=== PATIENT | female | born 1970 | race Two or more races ===

== ENCOUNTER 2017-09-07 20:17 | Inpatient (IN) | payer OTHER ==
[~2017-09-07] VITALS: Ht 152.4 cm; Wt 65.8 kg
[2017-09-07] MEDS ORDERED: NKM (20:48)
[2017-09-07 20:54] VITALS: BP 136/90
[2017-09-07] MEDS: Norco 5mg/325mg tab ORAL ONE ×2 (21:15→21:27)
--- NOTE | 2017-09-07 21:16 | Emergency Room Report ---
History of Present Illness General Chief Complaint: Back Pain-No Injury Source: Patient Present Illness HPI Is a 47-year-old female with no significant past medical history. She presents with chief complaint of lower back pain for one day. Onset was around noon. Worse in the last hour or so. Pain localized to the lower lumbar/sacral area. Radiate around to the buttock area. No no fever chills but no nausea no vomiting. Pain is 9/10. Worse with movement. Allergies: Coded Allergies: No Known Allergies (Unverified , 09/07/17) Patient History Past Medical History: see triage record, old chart reviewed Past Surgical History: other Pertinent Family History: none Social History: Denies: smoking Last Menstrual Period: Aug Now: No Immunizations: other Reviewed Nursing Documentation: PMH: Agreed, PSxH: Agreed Nursing Documentation-PMH Hx Gastrointestinal Problems: Yes - GASTRITIS Review of Systems Eye: Denies: eye pain, blurred vision ENT: Denies: ear pain, nose congestion, throat swelling Respiratory: Denies: cough, shortness of breath Cardiovascular: Denies: chest pain, palpitations Gastrointestinal: Denies: abdominal pain, diarrhea, nausea, vomiting Musculoskeletal: Reports: back pain, Denies: joint pain Skin: Denies: rash Neurological: Denies: headache, numbness Endocrine: Denies: increased thirst, increased urine Hematologic/Lymphatic: Denies: easy bruising All Other Systems: negative except mentioned in HPI Physical Exam Vital Signs Date Time Temp Pulse Resp B/P (MAP) Pulse Ox O2 Delivery O2 Flow Rate FiO2 09/07/17 20:43 97.9 76 18 136/90 95 Room Air vitals normal Sp02 EP Interpretation: reviewed, normal General Appearance: well appearing, no apparent distress, alert Head: normocephalic, atraumatic Eyes: bilateral eye PERRL, bilateral eye EOMI ENT: hearing grossly normal, normal pharynx Neck: full range of motion, supple, no meningismus Respiratory: chest non-tender, lungs clear, normal breath sounds Cardiovascular #1: regular rate, rhythm, no murmur Gastrointestinal: normal bowel sounds, non tender, no mass, no organomegaly, no bruit, non-distended Musculoskeletal: gait/station normal, normal range of motion, tender - Over left lower lumbar/sacral paraspinous area. Psychiatric: mood/affect normal Skin: warm/dry Medical Decision Making Diagnostic Impression: Primary Impression: Back pain Qualified Codes: M54.5 - Low back pain Additional Impression: Necrosis of tissue at site of injection Qualified Codes: T80.89XA - Other complications following infusion, transfusion and therapeutic injection, initial encounter; I96 - Gangrene, not elsewhere classified ER Course This patient presents with lower back pain/sacral area pain. She had silicone injection in that site before. There is some hardness and tenderness in that area. She is concerning for possible necrosis. I spoke with her surgeon who recommended that patient be admitted to the hospital for further workup including MRI. He had arranged her to be admitted to Dr. Aguilar. I spoke with him and he agreed to admit the patient. Lab Results Impression labs unremarkable Last Vital Signs Date Time Temp Pulse Resp B/P (MAP) Pulse Ox O2 Delivery O2 Flow Rate FiO2 09/07/17 20:54 97.9 18 136/90 95 Room Air 09/07/17 20:43 76 Status: unchanged Disposition: ADMITTED INPATIENT Condition: Serious KULWINDER VIGIL M.D. Sep 07, 2017 21:16
[2017-09-07 21:52] LABS: APPEARANCE,URINE CLEAR; KETONES,URINE NEGATIVE (NEGATIVE); LEUKOCYTE ESTERASE ,URINE NEGATIVE (NEGATIVE); NITRITE,URINE NEGATIVE (NEGATIVE); PH,URINE 7 (4.5-8.0); PROTEIN,URINE NEGATIVE (NEGATIVE); UROBILINOGEN,URINE NORMAL MG/DL (0.0-1.0)
[2017-09-07 22:55] LABS: BASOPHILS % (AUTO) 1.5 % (0.0-2.0); EOSINOPHILS % (AUTO) 1.4 % (0.0-3.0); LYMPHOCYTES % (AUTO) 39.7 % (20.0-45.0); MEAN CORPUSCULAR HEMOGLOBIN 25.3 PG (27.0-31.0); MEAN CORPUSCULAR VOLUME 82 FL (80-99); MEAN PLATELET VOLUME 6.4 FL (6.5-10.1); MONOCYTES % (AUTO) 5.1 % (1.0-10.0); NEUTROPHILS % (AUTO) 52.3 % (45.0-75.0); PLATELET COUNT 412 K/UL (150-450); RED BLOOD COUNT 4.94 M/UL (4.20-5.40); RED CELL DISTRIBUTION WIDTH 21.1 % (11.6-14.8); WHITE BLOOD COUNT 6.4 K/UL (4.8-10.8)
[2017-09-07 23:02] LABS: ANION GAP 9 mmol/L (5-15); CALCIUM 9.4 MG/DL (8.5-10.1); CARBON DIOXIDE 28 MMOL/L (21-32); CHLORIDE 104 MMOL/L (98-107); CREATININE 0.6 MG/DL (0.55-1.30); GLOMERULAR FILTRATION RATE > 60 mL/min (>60); POTASSIUM 3.7 MMOL/L (3.5-5.1); SODIUM 141 MMOL/L (136-145)
[2017-09-07] MEDS ORDERED: Morphine Sulfate 4mg/ml Inj IVP PRN (23:15)
[2017-09-07] MEDS ORDERED: Morphine Sulfate 2mg/ml Inj IVP PRN (23:15)
[2017-09-07 23:58] VITALS: BP 125/79
[2017-09-08] VITALS (18 sets, daily range): BP systolic 87–136; BP diastolic 40–78
[2017-09-08] MEDS ORDERED: D5NS 1,000 ML IV SCH (00:11)
[2017-09-08] MEDS ORDERED: Unasyn 3gm Inj IM ONE (01:00)
[2017-09-08] MEDS ORDERED: Sterile Water 10ml Vial IV SCH (03:00)
[2017-09-08] MEDS ORDERED: Unasyn 3gm/NS 110ml IVPB SCH ×2 (06:00)
[2017-09-08] MEDS ORDERED: Unasyn 3gm Inj ONE (06:07)
--- NOTE | 2017-09-08 09:26 | Diagnostic Imaging Report ---
Indication: Pain and swelling and low back buttocks and bilateral thighs, history of prior silicone injections Technique: Sagittal T1 and T2 fast spin echo, sagittal STIR, axial T1 and T2 fast spin-echo images of the lumbar spine Comparison: None Findings: On the images of the lowest axial cuts, focal signal abnormalities are seen in the subcutaneous fat. These are better visualized and described on a pelvic MRI performed at same time. Bony alignment is normal. Vertebral body marrow signal is normal. Vertebral body heights are preserved. There is degenerative disc narrowing at L5-S1. The remainder the disc spaces are preserved. There is desiccation of the L4-5 and L5-S1 discs. At L5-S1, there is very mild circumferential annular bulge, which does not significantly compromise the spinal canal, may minimally compromise the neural foramina bilaterally. At L4-5, there is minimal circumferential annular bulge with evidence of a small annular fissure posteriorly. However, this does not significantly compromise the neural foramina or the spinal canal. Progress of the remaining disc levels, no significant disc bulge or protrusion, spinal stenosis, or neural foraminal stenosis. The included extraspinal soft tissues are unremarkable. Impression: Minimal degenerative changes, as described No significant acute abnormality Buttock subcutaneous fat abnormality, incompletely included on this exam. Please refer to pelvic MRI for discussion of this
--- NOTE | 2017-09-08 10:54 | History & Physical ---
History and Physical History & Physicial DATE OF ADMISSION: 09/07/2017 REASON FOR ADMISSION: pain over buttocks HISTORY OF PRESENT ILLNESS: This is a 47 year old female w h/o anemia, silicon injection of the gluteals bilaterally 5 years ago at home by nurse who was referred here by his plastic surgeon for lower back pain. She states she has sharp gluteal b/l pain radiating down thighs that is worse at night when laying flat. She states she cannot sleep because of the pain PAST MEDICAL HISTORY: gastritis, DDD of spine, anemia PAST SURGICAL HISTORY: Silicon injections over the gluteals 5 yrs ago tummy [place], umbilical hernia repair MEDICATIONS: No medications. ALLERGIES: No allergies. PAST SOCIAL HISTORY: she does not smoke. He drinks alcohol socially. He does not use any drugs. FAMILY HISTORY: Noncontributory. REVIEW OF SYSTEMS: A 12-point review of systems is negative except for pertinent positives as mentioned above. Last 24 Hour Vital Signs Date Time Temp Pulse Resp B/P (MAP) Pulse Ox O2 Delivery O2 Flow Rate FiO2 09/08/17 08:41 97.7 58 18 103/59 96 09/08/17 04:00 98.1 57 19 114/68 95 09/08/17 04:00 Room Air 09/08/17 00:30 98.2 64 18 114/67 98 09/08/17 00:25 97.9 69 18 125/79 100 Room Air 09/08/17 00:00 Room Air 09/07/17 23:58 97.9 69 18 125/79 100 Room Air 09/07/17 20:54 97.9 18 136/90 95 Room Air 09/07/17 20:43 97.9 76 18 136/90 95 Room Air PHYSICAL EXAMINATION: GENERAL: No acute distress. The patient is alert, awake, and oriented x3. HEENT: Normocephalic and atraumatic. NECK: Supple. No JVD. LUNGS: Clear to auscultation bilaterally. No crackles, rhonchi, or rales. CARDIOVASCULAR: Regular rate and rhythm. Normal S1 and S2. + faint murmur SKIN: The patient has redness and warmth over the gluteals and it is felt tender to touch. He has significant amount of fullness in both gluteals. EXTREMITIES: No clubbing, cyanosis, or edema. LABORATORY AND DIAGNOSTIC DATA: Laboratory Tests Test 09/07/17 21:30 09/07/17 22:36 09/08/17 05:20 Urine Color Pale yellow Urine Appearance Clear Urine pH 7 (4.5-8.0) Urine Specific Mcdonald 1.005 (1.005-1.035) Urine Protein Negative (NEGATIVE) Urine Glucose (UA) Negative (NEGATIVE) Urine Ketones Negative (NEGATIVE) Urine Occult Blood Negative (NEGATIVE) Urine Nitrite Negative (NEGATIVE) Urine Bilirubin Negative (NEGATIVE) Urine Urobilinogen Normal MG/DL (0.0-1.0) Urine Leukocyte Esterase Negative (NEGATIVE) White Blood Count 6.4 K/UL (4.8-10.8) Pending Red Blood Count 4.94 M/UL (4.20-5.40) Hemoglobin 12.5 G/DL (12.0-16.0) Hematocrit 40.4 % (37.0-47.0) Mean Corpuscular Volume 82 FL (80-99) Mean Corpuscular Hemoglobin 25.3 PG (27.0-31.0) L Mean Corpuscular Hemoglobin Concent 31.0 G/DL (32.0-36.0) L Red Cell Distribution Width 21.1 % (11.6-14.8) H Platelet Count 412 K/UL (150-450) Mean Platelet Volume 6.4 FL (6.5-10.1) L Neutrophils (%) (Auto) 52.3 % (45.0-75.0) Lymphocytes (%) (Auto) 39.7 % (20.0-45.0) Monocytes (%) (Auto) 5.1 % (1.0-10.0) Eosinophils (%) (Auto) 1.4 % (0.0-3.0) Basophils (%) (Auto) 1.5 % (0.0-2.0) Sodium Level 141 MMOL/L (136-145) Potassium Level 3.7 MMOL/L (3.5-5.1) Chloride Level 104 MMOL/L (98-107) Carbon Dioxide Level 28 MMOL/L (21-32) Anion Gap 9 mmol/L (5-15) Blood Urea Nitrogen 8 mg/dL (7-18) Creatinine 0.6 MG/DL (0.55-1.30) Estimat Glomerular Filtration Rate > 60 mL/min (>60) Glucose Level 97 MG/DL (74-106) Calcium Level 9.4 MG/DL (8.5-10.1) Lymphocytes Pending Erythrocyte Sedimentation Rate 8 MM/HR (0-20) Lupus Anticoagulant Pending Lupus Anticoagulant PTT Baseline Pending Lupus Anticoag DRVVT Screen Ratio Pending DRVVT Confirmation Interpretation Pending Hexagonal Phase Comment Pending C-Reactive Protein, Quantitative < 0.4 mg/dL (0.00-0.90) Human Chorionic Gonadotropin, Qual Negative Immunoglobulin G Pending Immunoglobulin A Pending Immunoglobulin M Pending Immunofixation Screen Pending Rheumatoid Factor Screen Pending Anti-Nuclear Antibody Screen Pending SS-A/Ro Antibody Pending SS-B/La Antibody Pending Total Complement (CH50) Pending Percent CD3 Cells Pending Absolute CD3 Count Pending Percent CD4 Cells Pending Absolute CD4 Count Pending T-Lymphocyte CD4/CD8 Ratio Pending Percent CD8 Cells Pending Absolute CD8 Count Pending ASSESSMENT: 1. Gluteal cellulitis with tissue necrosis secondary due to silicon injection. 2. gastritis 3. murmur PLAN: 1. Admit the patient to Medical/Surgical. 2. Followup MRI of Lumbar/Sacrum 3. autoimmune labs ordered 4. TTE ordered 5. Plastic surgery consult; NPO; Possible debridement by plastic surgery; can proceed for possible debridement without cardiovascular risk stratification 6. Unasyn 3gm IV Q 6hrs 7. PPI 8. IV fluids 9. Type and cross 2 units DVT px - SCDs CHERRI ARZATE M.D. Sep 08, 2017 10:54
--- NOTE | 2017-09-08 11:29 | Diagnostic Imaging Report ---
Indication: PAIN Technique: Coronal and axial T1 fast spin-echo, coronal FSE IR, axial FSE STIR, axial T2 FRFSE with and without fat saturation, sagittal T2 FRFSE Comparison: None Findings: Foci of low signal on all sequences are seen primarily concentrated within the bilateral buttock subcutaneous fat. However, similar foci, less extensive, are seen wrapping around into the bilateral hip regions, and extending distally well into the lateral thigh subcutaneous fat, extending beyond the imaging volume. The matrix of soft tissue surrounding base demonstrates a reticular pattern of slightly increased T2 signal on the STIR signal with cyst, but no evidence of significant soft tissue edema or focal fluid collections are demonstrated. No muscular signal abnormality demonstrated. Considerable fluid is seen the lung endometrium and endocervical canal. Filling defects are seen within the fluid, which may reflect polyps or submucosal fibroids. There are also myometrial foci of low signal in the uterus which may reflect fibroids, and a posterior focus of high T2 signal which may represent a degenerated fibroid. There is also evidence of a cervical nabothian cyst. Prominent bilateral inguinal lymph nodes are demonstrated. Impression: Foci bilateral buttock, hip, and thigh low signal within the subcutaneous fat, consistent with history of silicone injections. Note that this extends well into the bilateral lateral thighs, beyond the imaging volume There is slight increased STIR signal within the soft tissues surrounding the injected silicone, but no gabby edema to suggest cellulitis is evident. No focal fluid collections to suggest abscess. Considerable fluid is seen within the endometrium. Polypoid filling defects within the endometrial fluid may reflect some mucosal fibroids or polyps. There are also fundal fibroids demonstrated. Recommend gynecological evaluation and sonography, as clinically indicated
--- NOTE | 2017-09-08 12:28 | Pre-Procedure Note/Attestation ---
Pre-Procedure Note/Attestation Complete Prior to Procedure Planned Procedure: bilateral Procedure Narrative: staged debridement of bilateral buttock and back necrotic soft tissue and flap delay and wound vac placement Indications for Procedure Pre-Operative Diagnosis: bilateral buttock and back necrotic soft tissue Attestation I attest that I discussed the nature of the procedure; its benefits; risks and complications; and alternatives (and the risks and benefits of such alternatives ), prior to the procedure, with the patient (or the patient's legal school admissions representative). I attest that, if there was a reasonable possibility of needing a blood transfusion, the patient (or the patient's legal school admissions representative) was given the [facility] standardized written summary, pursuant to the Rigo [place] Blood Safety Act ([place] Health and Safety Code # 1645, as amended). I attest that I re-evaluated the patient just prior to the surgery and that there has been no change in the patient's H&P, except as documented below: Ernesto Alfredo M.D. Sep 08, 2017 12:28
[2017-09-08] MEDS ORDERED: Bacitracin 50000 Units Vial ONE (12:56)
--- NOTE | 2017-09-08 13:58 | Anethesia Preoperative Eval ---
Anesthesia Pre-op PMH/ROS General Date of Evaluation: Sep 08, 2017 Anesthesiologist: Brandon ASA Score: ASA 2 Mallampati Score Class I : Soft palate, uvula, fauces, pillars visible Class II: Soft palate, uvula, fauces visible Class III: Soft palate, base of uvula visible Class IV: Only hard plate visible Mallampati Classification: Class I Surgeon: Juni Diagnosis: Back Pain Surgical Procedure: Debride Bilateral Buttocks/Back with Wound Vac Placement Anesthesia History: none Family History: no anesthesia problems Allergies: Coded Allergies: No Known Allergies (Unverified , 09/07/17) Medications: see eMAR Past Medical History Gastrointestinal/Genitourinary: Reports: GERD Hematology/Immune: Reports: anemia Anesthesia Pre-op Phys. Exam Physician Exam Last Vital Signs Date Time Temp Pulse Resp B/P (MAP) Pulse Ox O2 Delivery O2 Flow Rate FiO2 09/08/17 12:00 97.9 71 19 115/78 99 09/08/17 04:00 Room Air Constitutional: NAD Neurologic: CN 2-12 intact Cardiovascular: RRR Respiratory: CTA Gastrointestinal: S/NT/ND Airway Exam Mallampati Score: Class I MO: full ROM: full Teeth: intact Anesthesia Pre-op A/P Labs Hematology Test 09/07/17 22:36 09/08/17 05:20 White Blood Count 6.4 K/UL (4.8-10.8) Pending Red Blood Count 4.94 M/UL (4.20-5.40) Hemoglobin 12.5 G/DL (12.0-16.0) Hematocrit 40.4 % (37.0-47.0) Mean Corpuscular Volume 82 FL (80-99) Mean Corpuscular Hemoglobin 25.3 PG (27.0-31.0) L Mean Corpuscular Hemoglobin Concent 31.0 G/DL (32.0-36.0) L Red Cell Distribution Width 21.1 % (11.6-14.8) H Platelet Count 412 K/UL (150-450) Mean Platelet Volume 6.4 FL (6.5-10.1) L Neutrophils (%) (Auto) 52.3 % (45.0-75.0) Lymphocytes (%) (Auto) 39.7 % (20.0-45.0) Monocytes (%) (Auto) 5.1 % (1.0-10.0) Eosinophils (%) (Auto) 1.4 % (0.0-3.0) Basophils (%) (Auto) 1.5 % (0.0-2.0) Lymphocytes Pending Erythrocyte Sedimentation Rate 8 MM/HR (0-20) Coagulation Test 09/08/17 05:20 Lupus Anticoagulant Pending Lupus Anticoagulant PTT Baseline Pending Lupus Anticoag DRVVT Screen Ratio Pending DRVVT Confirmation Interpretation Pending Hexagonal Phase Comment Pending Chemistry Test 09/07/17 22:36 09/08/17 05:20 Sodium Level 141 MMOL/L (136-145) Potassium Level 3.7 MMOL/L (3.5-5.1) Chloride Level 104 MMOL/L (98-107) Carbon Dioxide Level 28 MMOL/L (21-32) Anion Gap 9 mmol/L (5-15) Blood Urea Nitrogen 8 mg/dL (7-18) Creatinine 0.6 MG/DL (0.55-1.30) Estimat Glomerular Filtration Rate > 60 mL/min (>60) Glucose Level 97 MG/DL (74-106) Calcium Level 9.4 MG/DL (8.5-10.1) C-Reactive Protein, Quantitative < 0.4 mg/dL (0.00-0.90) Human Chorionic Gonadotropin, Qual Negative Serum Test Test 09/08/17 05:20 Human Chorionic Gonadotropin, Qual Negative Risk Assessment & Plan Assessment: ASA 2 Plan: GA, BIS, GlideScope Status Change Before Surgery: No Pre-Antibiotics Dru grams Ancef IV Given Within 1 Hr of Incision: Yes Time Given: 13:11 Hai Taylor MD Sep 08, 2017 13:58
--- NOTE | 2017-09-08 13:59 | Immediate Post-Op Evaluation ---
Immediate Post-Op Evalulation Immediate Post-Op Evalulation Procedure: Debride Bilateral Buttocks/Back with Wound Vac Placement Date of Evaluation: Sep 08, 2017 Time of Evaluation: 15:34 IV Fluids: 1000 LR Blood Products: 0 Estimated Blood Loss: 200 Urinary Output: 200 Blood Pressure Systolic: 87 Blood Pressure Diastolic: 44 Pulse Rate: 62 Respiratory Rate: 16 O2 Sat by Pulse Oximetry: 100 Temperature (Fahrenheit): 97 Pain Score (1-10): 2 Nausea: No Vomiting: No Complications 0 Patient Status: awake, reacts, patent, extubated, none Hydration Status: adequate Dru grams Ancef IV Given Within 1 Hr of Incision: Yes Time Given: 13:11 Hai Taylor MD Sep 08, 2017 13:59
[2017-09-08] MEDS ORDERED: LORazepam Inj 2mg/ml 1ml IV PRN (14:00)
[2017-09-08] MEDS ORDERED: Norco 7.5mg/325mg tab ORAL PRN (14:00)
[2017-09-08] MEDS ORDERED: Norco 5mg/325mg tab ORAL PRN (14:00)
[2017-09-08] MEDS ORDERED: DiphenhydrAMINE 50mg/ml Inj IVP PRN ×2 (14:00→16:00)
[2017-09-08] MEDS ORDERED: Metoclopramide 10mg/2ml Inj IVP PRN (14:00)
[2017-09-08] MEDS ORDERED: oxyCODONE HCL/Acetaminophen 5/325mg ORAL PRN (14:00)
[2017-09-08] MEDS ORDERED: Atropine Inj 1mg/10ml Syr IV PRN (14:00)
[2017-09-08] MEDS ORDERED: Ketorolac 60mg Inj IV PRN (14:00)
[2017-09-08] MEDS ORDERED: Midazolam 2mg/2ml Inj IVP PRN (14:00)
[2017-09-08] MEDS ORDERED: fentaNYL 100 mcg/2 mL IV PRN (14:00)
--- NOTE | 2017-09-08 14:01 | 48 Hour Post Anesthesia Eval ---
Post Anesthesia Evaluation Procedure: Debride Bilateral Buttocks/Back with Wound Vac Placement Date of Evaluation: Sep 08, 2017 Time of Evaluation: 15:43 Blood Pressure Systolic: 112 0: 71 Pulse Rate: 67 Respiratory Rate: 16 Temperature (Fahrenheit): 98.4 O2 Sat by Pulse Oximetry: 100 Airway: patent Nausea: No Vomiting: No Pain Intensity: 2 Hydration Status: adequate Cardiopulmonary Status: Stable Mental Status/LOC: patient returned to baseline Follow-up Care/Observations: 0 Post-Anesthesia Complications: 0 Follow-up care needed: N/A Hai Taylor MD Sep 08, 2017 14:01
[2017-09-08] MEDS ORDERED: Acetaminophen (Non formulary) 100 ML IV ONE (14:45)
--- NOTE | 2017-09-08 15:10 | Operative Note - PDOC ---
Operative Note Operative Note Pre-op Diagnosis: bilateral buttock and back necrotic soft tissue, cellultis Procedure: staged debridement of bilateral buttock and back soft tissue necrosis, flap delay and wound vac placement Post-op Diagnosis: bilateral buttock and back soft tissue necrosis, buttock cellulitis Post-op Diagnosis: same as pre-op Surgeon: rufus Glass Fitter: sammy Anesthesiologist: brissa Anesthesia: general Specimen: yes - bilateral buttock and back soft tissue necrosis Complications: none Condition: stable Estimated Blood Loss: volume - 350 Drains: wound vac Implant(s) used?: No Indications for Procedure necrotic soft tissue b/l buttock and back Description of Procedure see op note Ernesto Alfredo M.D. Sep 08, 2017 15:10
[2017-09-08] MEDS ORDERED: PCA HYDROmorphone 1mg/ml 30 ML IV ONE (15:52)
[2017-09-08] MEDS: PCA HYDROmorphone 1mg/ml 30 ML IV PRN (15:57)
[2017-09-08] MEDS: Hydromorphone 0.5mg/0.5ml inj IVP PRN ×2 (15:58→16:19)
[2017-09-08] MEDS ORDERED: Naloxone 0.4mg/ml Inj IVP PRN (16:00)
[2017-09-08] MEDS ORDERED: Rate Change PCA 1 Each MISC PRN (16:00)
[2017-09-08] MEDS ORDERED: LORazepam 1mg tab ORAL PRN (16:00)
[2017-09-08] MEDS ORDERED: LR 1000ml 1,000 ML IVLG SCH (16:30)
[2017-09-08] MEDS: PCA Education Pamphlet MISC SCH (17:18)
[2017-09-08] MEDS: LR 1000ml 1,000 ML IV SCH ×2 (18:00→20:16)
[2017-09-08] MEDS: PCA shift volume MISC SCH (19:28)
[2017-09-08] MEDS: Ampicillin/Sulbactam Sod 3 GM in NS 55 ML IVPB SCH (21:54)
[2017-09-08] MEDS ORDERED: Ampicillin/Sulbactam Sod 3 GM in NS 110 ML IVPB SCH (22:00)
[2017-09-08] MEDS: Heparin 5000 units/ml inj SUBQ SCH (22:17)
--- NOTE | 2017-09-08 23:30 | Operative Note - Dictated ---
DATE OF OPERATION: 09/08/2017 SURGEON: Ernesto Alfredo M.D. CRAWLER DRAGLINE OPERATOR SURGEON: Mary Griffin M.D. ANESTHESIOLOGIST: Hai Taylor M.D. ANESTHESIA: General endotracheal tube anesthesia. PREOPERATIVE DIAGNOSES: 1. Cellulitis of bilateral buttocks. 2. Bilateral buttock, back, and hip soft tissue necrosis secondary to foreign body reaction. POSTOPERATIVE DIAGNOSES: 1. Cellulitis of bilateral buttocks. 2. Bilateral buttock, back, and hip soft tissue necrosis secondary to foreign body reaction. PROCEDURE PERFORMED: 1. Staged debridement of foreign material from bilateral buttocks and back. 2. Elevation and delay of right gluteal inferiorly based fasciocutaneous flap. 3. Elevation and delay of left gluteal inferiorly based fasciocutaneous flap. 4. Elevation and delay of left superiorly based lumbar spine fasciocutaneous flap. 5. Radical resection of 90 sq cm of right back necrotic soft tissue mass. 6. Radical resection of 320 sq cm of right buttock necrotic soft tissue mass. 7. Radical resection of 90 sq cm of left back necrotic soft tissue mass. 8. Radical resection of 288 sq cm of left buttock necrotic soft tissue mass. 9. Debridement of bilateral gluteus claudia necrotic muscle. 10. Pulse jet lavage irrigation of bilateral buttocks open wound. 11. Wound VAC placement of bilateral buttocks. INDICATION FOR PROCEDURE: This is a 47-year-old female, who I previously dictated an emergency consultation earlier in the day as she was admitted through the emergency room last night complaining of redness and warmth, fevers and chills, as well as significant back and buttock pain. The patient had MRIs ordered by the emergency room. It showed significant soft tissue infiltration of bilateral buttocks and the entire soft tissue and subcutaneous tissue became necrotic and there was involvement of bilateral gluteus claudia muscles more severe on the right and the exam findings were consistent with cellulitis. There was also a cranial migration of the foreign material up to the L4 level of the lumbar spine, which is likely the inciting cause of the patient's exquisite back pain as well as the cause of the paresthesias of her lower extremities from pressure on the paraspinal muscles and the sciatic nerves, which caused the paresthesias, which the patient presented to the emergency room with. The patient was admitted for intravenous antibiotics and pain control. After reviewing the MRIs, I explained to the patient that she would need emergent surgery including radical debridement in a staged manner of soft tissue necrosis from bilateral buttocks and her back as well as her both lower extremities. I explained to the patient that it would be impossible to remove all the soft tissue necrosis and foreign material and some of it may have migrated and some of it may continue to migrate in the future down her limbs and further up her back. It was also communicated to the patient that there is a chance this could come out cosmetically disfiguring. She may need multiple surgeries over many years. It was also explained to the patient that she may not improve after surgery. Risks and benefits of the proposed operation were also discussed with the patient. It was explained to the patient that she would benefit from surgery to lower the foreign body burden by debriding and removing a significant amount of the foreign material to allow her immune system to reset. Blood work to rule out PEGGY syndrome was sent and is pending. It was explained to the patient that a large amount of foreign body material and burden once it is lowered, the immune system usually rebounds and then she will not be as prone to recurrent infections such as cellulitis for which she presented to the emergency room in the future. It was also explained that removing the foreign material would likely leave less in her to potentially migrate in the future and will also take the pressure off the paraspinal muscles of the back and the sciatic nerve and should help her exquisite back pain and the paresthesias, which she presented to the emergency room with. The patient was told if she did not have surgery, her skin which is already hyperpigmented and hard and discolored consisting of soft tissue necrosis would eventually progress to entire necrosis of the buttocks entailing much more radical surgeries and possibly even sepsis and at this point. The potential risks of the surgery were discussed including, but not limited to, bleeding, hematoma, seroma, infection, DVT, PE, [place], , poor wound healing, potential for cosmetic disfiguring, wound dehiscence, hypertrophic scarring, keloid scarring, damage to sensory and motor nerves, as well as the need for multiple surgeries. The patient understood this and wished to proceed. Appropriate preop workup was performed by the emergency room staff and that the patient was seen by the medical team and optimized. An echocardiogram was done, which was normal and the patient is going to be taken to the operating room emergently. DESCRIPTION OF PROCEDURE: The patient was taken to the operating room. After appropriate markings were made in the preop holding area consistent with the physical exam as well as MRI findings, she was then taken to the operating room. In the operating room, she was placed under general endotracheal tube anesthesia. SCDs were placed on bilateral lower extremities. Perioperative antibiotics were confirmed and given. The patient was then flipped in the prone position. After appropriate position and padding of her arms, the area was prepped and draped in the usual clean and sterile manner. The anus was blocked off with a blue towel and Ioban to block any bowel flow. We started the operation with a #10 scalpel. We cut through the skin and used electrocautery to dissect down to the deep muscle fascia of the paraspinal muscles and gluteus claudia muscles. We then elevated and delayed superiorly based lumbar spine fasciocutaneous flap just deep to Kamila's fascia going up to level L4 correlating to the MRI findings and the physical exam findings of fluctuant mass and tenderness. When we got there, we incised the deep muscle fascia to release the muscle flaps. We then elevated and delayed bilateral gluteal left and right inferiorly based gluteal fasciocutaneous flaps going down to approximately 20 cm just deep to Kamila's fascia with electrocautery and with the aid of a lighted retractor. We maintained axial blood flow to these fasciocutaneous flaps and we cut the deep fascia with electrocautery when we delayed them. Since it is going to be a significant amount of debulking of the soft tissue, our goal was to delay these flaps, and when she comes back to the operating room in a few days, we will debride whatever skin was nonviable and necrotic since there was a huge amount of debulking that was going to go on and the patient would have compromised blood supply due to the perforators, which were compromised. We then with a combination of sharp dissection and electrocautery performed a radical excision of the necrotic soft tissue of the right back. We removed 90 sq cm of the right buttock and hip. We removed 320 sq cm of the left back. We removed 90 cm in the left buttock and hip. We removed 288 sq cm in the necrotic soft tissue with a combination of electrocautery, sharp dissection, and scalpel. After doing this, there was also involvement of bilateral gluteus claudia muscles more on the right than the left, which is fibrotic or necrotic. These were debrided in a similar manner. After doing this and delaying the flaps, a pulse jet lavage irrigated with 2 liters of antibiotic irrigation. Hemostasis was achieved with #0 Vicryl sutures as well as electrocautery. At this time, we did a significant amount of debulking and there was concern for necrosis of the flaps especially on the left side. So, after delaying the flaps and assuring hemostasis, we placed wound VAC and we set it to 125 mmHg and we completed the operation. There was no leak in the wound VAC. The patient was flipped over into supine position and extubated. FINDINGS: As above. DRAINS: Wound VAC to the bilateral buttocks. ESTIMATED BLOOD LOSS: 350 mL. COMPLICATIONS: None. CONDITION: Stable. SPECIMENS: 1. Right back necrotic soft tissue mass. 2. Left back necrotic soft tissue mass. 3. Right buttock necrotic soft tissue mass. 4. Left buttock necrotic soft tissue mass. Ernesto Alfredo M.D. DR: CHANTALE JOB#: [id number] CC: JULIA
--- NOTE | 2017-09-08 23:45 | Consultation ---
DATE OF CONSULTATION: 09/08/2017 EMERGENCY CONSULTATION SURGEON: Ernesto Alfredo M.D. HISTORY OF PRESENT ILLNESS: This is a 47-year-old female, who presented to the emergency room late last night with complaints of redness and warmth, fevers and chills of bilateral buttocks as well as significant back pain as well as other systemic symptoms. The patient has a history of buttock injections five years ago. The patient has had intermittent problems over the past several months, but it worsened to the point today that she presented to the emergency room complaining of incapacitating buttock and back pain, burning and itching, paresthesias of both legs. On further history, the patient complains of anxiety, headaches, chronic fatigue, paresthesias of upper and lower extremities, pain radiating down her legs, and burning and itching of the buttocks with significant buttock and lower back pain. The patient also states she has new onset redness and warmth of bilateral buttocks, which is causing significant pain. She was evaluated by the emergency room staff and found to have physical exam findings consistent with cellulitis. MRI done by the emergency room staff of the lumbar spine and pelvis showed significant soft tissue infiltration of bilateral buttocks and foreign body granulomas consistent with soft tissue necrosis and cellulitis. In terms of the lumbar spine, there was migration of foreign material and soft tissue necrosis of the lumbar spine to the level of L4, which is likely the etiology of her incapacitating back pain as well as the cause of her acute infection. PAST MEDICAL HISTORY: Gastritis, degenerative joint disease of the spine as well as anemia. PAST SURGICAL HISTORY: Abdominoplasty as well as umbilical hernia repair with recurrent hernia. MEDICATIONS: The patient does not take any medications. ALLERGIES: She has no allergies. PHYSICAL EXAMINATION: The patient had bilateral buttocks that were erythematous and warm with significant discoloration and deformity and soft tissue hardening consistent with soft tissue necrosis of her buttocks and cellulitis. There was also a tender fluctuant mass in the lumbar spine and there was significant hyperpigmentation of the buttocks skin as well as soft tissue necrosis and it was red and warm to palpation and tender. I reviewed the MRIs with the patient and the medical team, and I explained to the patient that she needs to have IV antibiotics for her cellulitis and she was admitted also for pain control. I told the patient that she would benefit from emergent stage radical debridement of bilateral buttocks, hip, and back soft tissue necrosis in a staged manner, the first operation being today after appropriate clearance. The patient also has a history of a heart murmur and had an echocardiogram, which was within normal limits. On physical exam and history, the patient also has migration of foreign material and pain on bilateral lower extremities just above the knee about 12 x 4 cm on each side that are tender, the mass, with underlying soft tissue necrosis. I offered the patient to go to the operating room emergently for debridement, flap delay as well as wound VAC placement in a staged manner. The patient was then to be optimized by the medical team for this emergent operation. Ernesto Alfredo M.D. DR: Yina JOB#: [id number] CC: JULIA
[2017-09-09 04:00] VITALS: BP 95/57
[2017-09-09] MEDS: Ampicillin/Sulbactam Sod 3 GM in NS 55 ML IVPB SCH ×3 (05:22→22:31)
[2017-09-09] MEDS: Heparin 5000 units/ml inj SUBQ SCH ×3 (05:24→22:32)
[2017-09-09] MEDS: PCA shift volume MISC SCH ×2 (07:00→19:00)
[2017-09-09 08:00] VITALS: BP_SYST 137; BP_SYST 97; BP_DIAS 49; BP_DIAS 89
[2017-09-09 08:11] LABS: BASOPHILS % (AUTO) 0.5 % (0.0-2.0); EOSINOPHILS % (AUTO) 0.1 % (0.0-3.0); LYMPHOCYTES % (AUTO) 22.7 % (20.0-45.0); MEAN CORPUSCULAR HEMOGLOBIN 25.7 PG (27.0-31.0); MEAN CORPUSCULAR HGB CONC 31.2 G/DL (32.0-36.0); MEAN CORPUSCULAR VOLUME 82 FL (80-99); MEAN PLATELET VOLUME 6.5 FL (6.5-10.1); MONOCYTES % (AUTO) 6.7 % (1.0-10.0); NEUTROPHILS % (AUTO) 70.1 % (45.0-75.0); PLATELET COUNT 344 K/UL (150-450); RED BLOOD COUNT 3.68 M/UL (4.20-5.40); RED CELL DISTRIBUTION WIDTH 21.1 % (11.6-14.8); WHITE BLOOD COUNT 8.2 K/UL (4.8-10.8)
[2017-09-09 08:31] LABS: ANION GAP 8 mmol/L (5-15); CALCIUM 8.8 MG/DL (8.5-10.1); CARBON DIOXIDE 28 MMOL/L (21-32); CHLORIDE 103 MMOL/L (98-107); CREATININE 0.5 MG/DL (0.55-1.30); GLOMERULAR FILTRATION RATE > 60 mL/min (>60); POTASSIUM 4.2 MMOL/L (3.5-5.1); SODIUM 138 MMOL/L (136-145)
[2017-09-09] MEDS: Pantoprazole Inj IVP SCH (08:31)
[2017-09-09] MEDS ORDERED: Zolpidem 5mg tab ORAL PRN ×2 (09:00→17:45)
[2017-09-09] MEDS: LR 1000ml 1,000 ML IV SCH (10:19)
--- NOTE | 2017-09-09 11:29 | General Progress Note ---
Assessment/Plan Problem List: (1) Cellulitis and abscess of buttock ICD Codes: L02.31 - Cutaneous abscess of buttock; L03.317 - Cellulitis of buttock SNOMED: 952665725 (2) Back pain ICD Codes: M54.9 - Dorsalgia, unspecified SNOMED: 484807497 Qualifiers: Qualified Codes: M54.5 - Low back pain (3) Necrosis of tissue at site of injection ICD Codes: T80.89XA - Other complications following infusion, transfusion and therapeutic injection, initial encounter; I96 - Gangrene, not elsewhere classified SNOMED: [id number] Qualifiers: Qualified Codes: T80.89XA - Other complications following infusion, transfusion and therapeutic injection, initial encounter; I96 - Gangrene, not elsewhere classified Assessment/Plan abxs wound care follow labs PRN Ativan for insomnia Subjective Allergies: Coded Allergies: No Known Allergies (Unverified , 09/07/17) Subjective C/O insomnia Objective Last 24 Hour Vital Signs Date Time Temp Pulse Resp B/P (MAP) Pulse Ox O2 Delivery O2 Flow Rate FiO2 09/09/17 08:00 17 09/09/17 08:00 96.4 59 17 97/49 99 09/09/17 04:00 16 09/09/17 04:00 97.9 63 18 95/57 100 Room Air 09/09/17 04:00 Room Air 09/09/17 00:00 17 09/08/17 23:55 Nasal Cannula 2.0 09/08/17 23:55 98.2 79 18 99/62 100 Nasal Cannula 2.0 09/08/17 20:00 16 09/08/17 20:00 97.7 75 18 99/61 100 Nasal Cannula 2.0 09/08/17 20:00 Nasal Cannula 2.0 09/08/17 18:00 97.9 75 18 106/69 100 09/08/17 17:40 15 09/08/17 17:30 97.9 73 18 108/61 100 09/08/17 17:30 100 Nasal Cannula 3.0 09/08/17 17:15 99 Nasal Cannula 3.0 09/08/17 17:15 97.7 73 18 106/61 99 09/08/17 17:10 15 09/08/17 17:00 97.8 65 18 102/62 100 09/08/17 17:00 100 Nasal Cannula 3.0 09/08/17 16:40 15 09/08/17 16:40 98.3 09/08/17 16:35 98.3 63 15 136/65 100 Nasal Cannula 3.0 09/08/17 16:27 98.3 09/08/17 16:25 13 09/08/17 16:20 61 18 127/67 100 Nasal Cannula 3.0 09/08/17 16:10 13 09/08/17 16:10 54 11 130/52 100 Nasal Cannula 3.0 09/08/17 15:57 17 09/08/17 15:57 57 17 117/53 100 Nasal Cannula 3.0 09/08/17 15:40 60 18 107/46 100 Nasal Cannula 3.0 09/08/17 15:33 66 18 110/48 100 Simple Mask 8.0 09/08/17 15:28 63 17 87/40 100 Simple Mask 8.0 09/08/17 15:25 67 16 100 09/08/17 15:24 62 16 100 09/08/17 15:23 97.0 64 11 87/42 99 Simple Mask 8.0 09/08/17 12:00 97.9 71 19 115/78 99 Intake and Output 09/09/17 09/10/17 19:00 07:00 Intake Total 250 ml Balance 250 ml Intake Oral 250 ml Laboratory Tests 09/09/17 05:30: White Blood Count 8.2, Red Blood Count 3.68L, Hemoglobin 9.5L, Hematocrit 30.3L , Mean Corpuscular Volume 82, Mean Corpuscular Hemoglobin 25.7L, Mean Corpuscular Hemoglobin Concent 31.2L, Red Cell Distribution Width 21.1H, Platelet Count 344, Mean Platelet Volume 6.5, Neutrophils (%) (Auto) 70.1, Lymphocytes (%) (Auto) 22.7, Monocytes (%) (Auto) 6.7, Eosinophils (%) (Auto) 0.1, Basophils (%) (Auto) 0.5, Sodium Level 138, Potassium Level 4.2, Chloride Level 103, Carbon Dioxide Level 28, Anion Gap 8, Blood Urea Nitrogen 5L, Creatinine 0.5L, Estimat Glomerular Filtration Rate > 60, Glucose Level 89, Calcium Level 8.8 Height (Feet): 5 Height (Inches): 0.00 Weight (Pounds): 145 Cardiovascular: normal rate Respiratory/Chest: lungs clear Edema: no edema noted Generalized MATT SNEED Sep 09, 2017 11:29
[2017-09-09] MEDS ORDERED: LORazepam 1mg tab ORAL PRN (11:30)
[2017-09-09 12:00] VITALS: BP 142/83
--- NOTE | 2017-09-09 12:23 | General Progress Note ---
Progress Note Progress Note pt doing very well; reports resolution of pre-op local and systemic symptoms such asb/; LE paresthesias, back and buttock pain and burning and itching, and fatigue PE: flaps viable; some ecchymosis of bilateral buttocks skin (-) signs infection/collections wound vacs in place A/P 1. d/c waterman, decrease IVF 2. oob, dvt ppx, cont iv abx, cont VACs 3. to OR mon for further debridement and flap closure over drains as well as removal of FB from b/l LE 4. d/c [employer], switch to tramadol 5. minimal time on buttocks; pt to sleep on sides or stomach only Ernesto Alfredo M.D. Sep 09, 2017 12:23
[2017-09-09] MEDS: Docusate 100mg cap ORAL SCH ×2 (13:14→17:19)
[2017-09-09] MEDS: PCA HYDROmorphone 1mg/ml 30 ML IV PRN (15:33)
[2017-09-09 16:00] VITALS: BP 96/59
[2017-09-09] MEDS: PCA Education Pamphlet MISC SCH (17:05)
[2017-09-09] MEDS ORDERED: LR 1000ml 1,000 ML IV SCH (18:00)
--- NOTE | 2017-09-09 18:17 | Cardiology Report ---
APPROVED REPORT EXAM: Two-dimensional and M-mode echocardiogram with Doppler and color Doppler. INDICATION Heart Murmur M-Mode DIMENSIONS IVSd0.9 (0.7-1.1cm)Left Atrium (MM)2.6 (1.6-4.0cm) LVDd4.7 (3.5-5.6cm)Aortic Root2.8 (2.0-3.7cm) PWd1.0 (0.7-1.1cm)Aortic Cusp Exc.1.6 (1.5-2.0cm) IVSs1.4 cm LVDs2.6 (2.5-4.0cm) PWs1.3 cm Normal left ventricular chamber size, systolic function and wall motion. Left ventricular ejection fraction estimated to be 60 %. No left ventricular hypertrophy. No evidence of pericardial effusion. All other cardiac chamber sizes are within normal limits. Mild focal aortic valve sclerosis with adequate cusp excursion. Mildly thickened mitral valve leaflets with normal excursion. Mild Mitral annulus and aortic root calcification. Normal pulmonic valve structure. IVC at normal size with physiologic collapse. A color flow and spectral Doppler study was performed and revealed: No aortic regurgitation.. Trace mitral regurgitation. Mitral diastolic velocities indicate normal diastolic function . Mild tricuspid regurgitation. Tricuspid systolic velocities suggests peak right ventricular systolic pressure of 40 mmHg, consistent with mild pulmonary hypertension. No Pulmonic regurgitation present.
[2017-09-09 20:16] VITALS: BP 94/63
[2017-09-10 00:23] VITALS: BP 100/59
[2017-09-10] MEDS: Ampicillin/Sulbactam Sod 3 GM in NS 55 ML IVPB SCH ×3 (05:48→21:29)
[2017-09-10] MEDS: Heparin 5000 units/ml inj SUBQ SCH ×3 (06:43→21:25)
[2017-09-10] MEDS: PCA shift volume MISC SCH (07:00)
[2017-09-10 07:49] LABS: ANION GAP 6 mmol/L (5-15); CALCIUM 8.2 MG/DL (8.5-10.1); CARBON DIOXIDE 28 MMOL/L (21-32); CHLORIDE 104 MMOL/L (98-107); CREATININE 0.5 MG/DL (0.55-1.30); GLOMERULAR FILTRATION RATE > 60 mL/min (>60); POTASSIUM 3.5 MMOL/L (3.5-5.1); SODIUM 138 MMOL/L (136-145)
[2017-09-10 08:00] VITALS: BP_SYST 103; BP_SYST 108; BP_DIAS 61; BP_DIAS 69
[2017-09-10 08:32] LABS: BASOPHILS % (AUTO) 0.7 % (0.0-2.0); EOSINOPHILS % (AUTO) 0.9 % (0.0-3.0); MEAN CORPUSCULAR HEMOGLOBIN 26.3 PG (27.0-31.0); MEAN CORPUSCULAR VOLUME 82 FL (80-99); MEAN PLATELET VOLUME 6.3 FL (6.5-10.1); MONOCYTES % (AUTO) 6.6 % (1.0-10.0); NEUTROPHILS % (AUTO) 62.8 % (45.0-75.0); PLATELET COUNT 314 K/UL (150-450); RED CELL DISTRIBUTION WIDTH 21.2 % (11.6-14.8); WHITE BLOOD COUNT 6.8 K/UL (4.8-10.8)
[2017-09-10] MEDS: Pantoprazole Inj IVP SCH (08:37)
[2017-09-10] MEDS: Docusate 100mg cap ORAL SCH ×3 (08:38→17:40)
--- NOTE | 2017-09-10 09:39 | Pre-Procedure Note/Attestation ---
Pre-Procedure Note/Attestation Complete Prior to Procedure Planned Procedure: bilateral Procedure Narrative: staged debridement of b/l buttock/hip and leg necrotic soft tissue Indications for Procedure Pre-Operative Diagnosis: bilateral buttock and back necrotic soft tissue, cellultis Attestation I attest that I discussed the nature of the procedure; its benefits; risks and complications; and alternatives (and the risks and benefits of such alternatives ), prior to the procedure, with the patient (or the patient's legal leather goods sales representative). I attest that, if there was a reasonable possibility of needing a blood transfusion, the patient (or the patient's legal leather goods sales representative) was given the [facility] standardized written summary, pursuant to the [place] Blood Safety Act ([place] Health and Safety Code # 1645, as amended). I attest that I re-evaluated the patient just prior to the surgery and that there has been no change in the patient's H&P, except as documented below: Ernesto Alfredo M.D. Sep 10, 2017 09:39
--- NOTE | 2017-09-10 09:39 | General Progress Note ---
Progress Note Progress Note pt doing well (+) OOB AF/VSS PE: flaps viable (-) signs infection/collections erythema improved, VACs in place H/H appropriate 07/06 A/P 1. NPO, IVF after midnight 2. to OR for further debridement b/l buttocks/hips and legs tmw and flap closure over drains 3. cont OOB/DVT ppx/ abx/ VAC 4. post-op care d/w pt and all questions answered Ernesto Alfredo M.D. Sep 10, 2017 09:39
[2017-09-10] MEDS ORDERED: LR 1000ml 1,000 ML IV SCH ×2 (10:15→11:00)
[2017-09-10 12:00] VITALS: BP 108/69
--- NOTE | 2017-09-10 13:56 | General Progress Note ---
Assessment/Plan Problem List: (1) Cellulitis and abscess of buttock ICD Codes: L02.31 - Cutaneous abscess of buttock; L03.317 - Cellulitis of buttock SNOMED: [id number] (2) Back pain ICD Codes: M54.9 - Dorsalgia, unspecified SNOMED: [id number] Qualifiers: Qualified Codes: M54.5 - Low back pain (3) Necrosis of tissue at site of injection ICD Codes: T80.89XA - Other complications following infusion, transfusion and therapeutic injection, initial encounter; I96 - Gangrene, not elsewhere classified SNOMED: [id number] Qualifiers: Qualified Codes: T80.89XA - Other complications following infusion, transfusion and therapeutic injection, initial encounter; I96 - Gangrene, not elsewhere classified Assessment/Plan abxs wound care check iron panel PRN Ativan for insomnia Subjective Allergies: Coded Allergies: No Known Allergies (Unverified , 09/07/17) Subjective resting Objective Last 24 Hour Vital Signs Date Time Temp Pulse Resp B/P (MAP) Pulse Ox O2 Delivery O2 Flow Rate FiO2 09/10/17 12:00 18 09/10/17 08:00 16 09/10/17 08:00 97.7 79 20 103/61 97 Room Air 09/10/17 04:00 16 09/10/17 00:23 98.1 65 19 100/59 95 09/10/17 00:00 16 09/09/17 20:16 98.3 63 18 94/63 100 09/09/17 20:00 17 09/09/17 16:00 98.4 88 17 96/59 97 09/09/17 15:44 17 09/09/17 15:42 17 Intake and Output 09/10/17 09/11/17 19:00 07:00 Intake Total 240 ml Balance 240 ml Intake Oral 240 ml # Voids 1 Laboratory Tests 09/10/17 04:55: White Blood Count 6.8, Red Blood Count 3.40L, Hemoglobin 9.0L, Hematocrit 28.0L , Mean Corpuscular Volume 82, Mean Corpuscular Hemoglobin 26.3L, Mean Corpuscular Hemoglobin Concent 32.0, Red Cell Distribution Width 21.2H, Platelet Count 314, Mean Platelet Volume 6.3L, Neutrophils (%) (Auto) 62.8, Lymphocytes (%) (Auto) 29.0, Monocytes (%) (Auto) 6.6, Eosinophils (%) (Auto) 0.9, Basophils (%) (Auto) 0.7, Sodium Level 138, Potassium Level 3.5, Chloride Level 104, Carbon Dioxide Level 28, Anion Gap 6, Blood Urea Nitrogen 6L, Creatinine 0.5L, Estimat Glomerular Filtration Rate > 60, Glucose Level 91, Calcium Level 8.2L Height (Feet): 5 Height (Inches): 0.00 Weight (Pounds): 145 MATT SNEED Sep 10, 2017 13:56
[2017-09-10] MEDS: PCA HYDROmorphone 1mg/ml 30 ML IV PRN (15:40)
[2017-09-10 16:00] VITALS: BP 98/54
[2017-09-10] MEDS ORDERED: PCA Education Pamphlet MISC ONE (19:15)
[2017-09-10] MEDS ORDERED: Naloxone 0.4mg/ml Inj IVP PRN (19:15)
[2017-09-10] MEDS ORDERED: PCA HYDROmorphone 1mg/ml 30 ML IV PRN (19:15)
[2017-09-10] MEDS ORDERED: Rate Change PCA 1 Each MISC PRN (19:15)
[2017-09-10] MEDS ORDERED: DiphenhydrAMINE 50mg/ml Inj IVP PRN (19:15)
[2017-09-10 20:27] VITALS: BP 114/58
[2017-09-11] VITALS (12 sets, daily range): BP systolic 97–120; BP diastolic 51–69
[2017-09-11] MEDS ORDERED: LR 1000ml 1,000 ML IV SCH
[2017-09-11] MEDS: Ampicillin/Sulbactam Sod 3 GM in NS 55 ML IVPB SCH ×3 (05:19→21:14)
[2017-09-11] MEDS: Heparin 5000 units/ml inj SUBQ SCH ×3 (05:55→21:28)
[2017-09-11] MEDS ORDERED: PCA shift volume MISC SCH (07:00)
[2017-09-11] MEDS ORDERED: Bacitracin 50000 Units Vial ONE (07:13)
[2017-09-11] MEDS ORDERED: Sterile Water Irrig 1000ml IRRIG ONE (08:00)
[2017-09-11] MEDS ORDERED: NS Irrig 1000ml ONE (08:00)
[2017-09-11] MEDS ORDERED: Neostigmine 1mg/ml 10ml Inj ONE (08:00)
[2017-09-11] MEDS ORDERED: Lidocaine 1% MPF 10mg/ml 5ml ONE (08:00)
[2017-09-11] MEDS ORDERED: NS Irrig 2000ml IRRIG ONE (08:00)
[2017-09-11] MEDS ORDERED: fentaNYL 100 mcg/2 mL IV ONE (08:00)
[2017-09-11] MEDS ORDERED: LR 1000ml ONE (08:00)
[2017-09-11] MEDS ORDERED: Lidocaine 1% Plain 30 ml INJ ONE (08:00)
[2017-09-11] MEDS ORDERED: Dexamethasone 4mg/ml vial ONE (08:00)
[2017-09-11] MEDS ORDERED: Zemuron 50mg/5ml Inj IV ONE (08:00)
[2017-09-11] MEDS ORDERED: Glycopyrrolate 0.2mg/ml 1ml Vial ONE (08:00)
[2017-09-11] MEDS ORDERED: Propofol 1,000mg/ 100ml btl IV ONE (08:00)
[2017-09-11] MEDS ORDERED: Sodium Chloride 10ml vial INJ ONE (08:00)
[2017-09-11] MEDS ORDERED: Naloxone 0.4mg/ml Inj IVP PRN (08:30)
[2017-09-11] MEDS ORDERED: DiphenhydrAMINE 50mg/ml Inj IVP PRN ×2 (08:30→09:15)
[2017-09-11] MEDS ORDERED: LORazepam 1mg tab ORAL PRN (08:30)
[2017-09-11] MEDS ORDERED: Rate Change PCA 1 Each MISC PRN (08:30)
--- NOTE | 2017-09-11 08:58 | Immediate Post-Op Evaluation ---
Immediate Post-Op Evalulation Immediate Post-Op Evalulation Procedure: Closure Bilateral Buttocks/Back with Debridement, Closure, Bilateral Legs Date of Evaluation: Sep 11, 2017 Time of Evaluation: 11:39 IV Fluids: 1000 LR Blood Products: 0 Estimated Blood Loss: 20 Urinary Output: 0 Blood Pressure Systolic: 114 Blood Pressure Diastolic: 56 Pulse Rate: 69 Respiratory Rate: 16 O2 Sat by Pulse Oximetry: 100 Temperature (Fahrenheit): 98.1 Pain Score (1-10): 2 Nausea: No Vomiting: No Complications 0 Patient Status: awake, reacts, patent, extubated, none Hydration Status: adequate Dru Gram Ancef IV Given Within 1 Hr of Incision: Yes Time Given: 08:16 Hai Taylor MD Sep 11, 2017 08:58
[2017-09-11] MEDS ORDERED: PCA Education Pamphlet MISC ONE (09:00)
[2017-09-11] MEDS: Docusate 100mg cap ORAL SCH ×3 (09:00→17:48)
[2017-09-11] MEDS: Pantoprazole Inj IVP SCH (09:00)
[2017-09-11 09:02] LABS: CD3 ABSOLUTE 1502 /uL (622-2402); CD4 ABSOLUTE 1061 /uL (359-1519); CD8 ABSOLUTE 420 /uL (109-897); LYMPHOCYTES ABSOLUTE 2.1 x10E3/uL (0.7-3.1); LYMPHS 46 % (Not Estab.); RHEUMATOID FACTOR SCREEN <10.0 IU/mL (0.0-13.9); SS-B/La SJOGRENS ANTIBODY <0.2 AI (0.0-0.9); SSA/Ro SJOGRENS ANTIBODY <0.2 AI (0.0-0.9); WBC 4.5 x10E3/uL (3.4-10.8)
[2017-09-11] MEDS ORDERED: LR 1000ml 1,000 ML IVLG SCH (09:03)
[2017-09-11] MEDS ORDERED: Norco 5mg/325mg tab ORAL PRN (09:15)
[2017-09-11] MEDS ORDERED: Ketorolac 30mg Inj IV PRN ×2 (09:15)
[2017-09-11] MEDS ORDERED: Atropine Inj 1mg/10ml Syr IV PRN (09:15)
[2017-09-11] MEDS ORDERED: Midazolam 2mg/2ml Inj IVP PRN (09:15)
[2017-09-11] MEDS ORDERED: fentaNYL 100 mcg/2 mL IV PRN (09:15)
[2017-09-11] MEDS ORDERED: Norco 7.5mg/325mg tab ORAL PRN (09:15)
[2017-09-11] MEDS ORDERED: LORazepam Inj 2mg/ml 1ml IV PRN (09:15)
[2017-09-11] MEDS ORDERED: Metoclopramide 10mg/2ml Inj IVP PRN (09:15)
[2017-09-11] MEDS ORDERED: Hydromorphone 0.5mg/0.5ml inj IVP PRN (09:15)
[2017-09-11] MEDS ORDERED: oxyCODONE HCL/Acetaminophen 5/325mg ORAL PRN (09:15)
[2017-09-11] MEDS: LR 1000ml 1,000 ML IV SCH ×2 (09:30→17:49)
[2017-09-11] MEDS ORDERED: Acetaminophen (Non formulary) 100 ML IV ONE (09:30)
--- NOTE | 2017-09-11 11:15 | Operative Note - PDOC ---
Operative Note Operative Note Pre-op Diagnosis: bilateral buttock and back and leg necrotic soft tissue, cellultis Procedure: staged debridement of bilateral buttock and back and legs soft tissue necrosis, flap delay and wound vac placement Post-op Diagnosis: bilateral buttock and back and legs soft tissue necrosis, buttock cellulitis Post-op Diagnosis: same as pre-op Surgeon: rufus Dermatopathologist: sammy Anesthesiologist: brissa Anesthesia: general Specimen: yes - bilateral buttock and back soft tissue necrosis Complications: none Condition: stable Estimated Blood Loss: volume - 150 Drains: LIBERTY Implant(s) used?: No Indications for Procedure necrotic soft tissue Description of Procedure see op note Ernesto Alfredo M.D. Sep 11, 2017 11:15
[2017-09-11] MEDS: PCA HYDROmorphone 1mg/ml 30 ML IV PRN (12:03)
[2017-09-11] MEDS: PCA shift volume MISC SCH (19:06)
--- NOTE | 2017-09-11 19:30 | Internal Med Progress Note ---
Subjective Physician Name Eros Arzate Attending Physician Eros Arzate M.D. Current Medications Medications (Trade) Dose Ordered Sig/Laura Route PRN Reason Start Time Stop Time Status Last Admin Dose Admin Acetaminophen (Tylenol) 650 mg Q4H PRN ORAL Mild Pain (Pain Scale 1-3) 09/07/17 23:15 10/07/17 23:14 Ampicillin Sodium/ Sulbactam Sodium 3 gm/Sodium Chloride 55 ml @ 110 mls/hr Q8HR IVPB 09/08/17 22:00 09/15/17 21:59 09/11/17 14:50 Dextrose (Dextrose 50%) STAT PRN IV Hypoglycemia 09/07/17 23:15 10/07/17 23:14 Diphenhydramine HCl (Benadryl) 25 mg Q6H PRN IVP Itching/Pruritis 09/11/17 08:30 09/13/17 08:29 Docusate Sodium (Colace) 100 mg THREE TIMES A DAY ORAL 09/09/17 13:00 10/09/17 12:59 09/11/17 17:48 Ferrous Sulfate (Feosol) 325 mg THREE TIMES A DAY ORAL 09/09/17 13:00 10/09/17 12:59 09/11/17 17:48 Heparin Sodium (Porcine) (Heparin 5000 units/ml) 5,000 units EVERY 8 HOURS SUBQ 09/08/17 22:00 10/08/17 21:59 09/11/17 14:49 Hydromorphone HCl 30 ml @ 0 mls/hr Q24H PRN IV For Pain 09/11/17 08:30 09/13/17 08:29 09/11/17 12:03 Lactated Ringer's 1,000 ml @ 125 mls/hr Q8H IV 09/11/17 09:30 10/11/17 09:29 09/11/17 17:49 Lorazepam (Ativan) 1 mg Q4H PRN ORAL Muscle Spasm 09/11/17 08:30 09/13/17 08:29 Lorazepam (Ativan) 1 mg QHS PRN ORAL Insomnia 09/09/17 11:30 09/16/17 11:29 Miscellaneous Medication (MARKETER Rate Change) 1 ea DAILY PRN MISC rate change 09/11/17 08:30 09/13/17 08:29 Miscellaneous Medication (MARKETER shift volume) 1 ea Q12HR@0700,1900 MISC 09/11/17 19:00 09/13/17 18:59 09/11/17 19:06 Naloxone HCl (Narcan) 0.1 mg Q1M PRN IVP RR<10/min OR SBP<90 mmHg 09/11/17 08:30 09/13/17 08:29 Ondansetron HCl (Zofran) 4 mg Q6H PRN IVP Nausea & Vomiting 09/11/17 08:30 09/13/17 08:29 Pantoprazole (Protonix) 40 mg DAILY IVP 09/09/17 09:00 10/09/17 08:59 09/10/17 08:37 Zolpidem Tartrate (Ambien) 5 mg HSPRN PRN ORAL Insomnia 09/09/17 17:45 09/16/17 17:44 Allergies: Coded Allergies: No Known Allergies (Unverified , 09/07/17) Subjective on MARKETER pump no BM since monday appetite no SOB 12 pt ROS neg except above positives Objective Last Vital Signs Date Time Temp Pulse Resp B/P (MAP) Pulse Ox O2 Delivery O2 Flow Rate FiO2 09/11/17 16:00 98.1 68 18 120/65 100 09/11/17 12:20 Nasal Cannula 3.0 Intake and Output 09/11/17 09/12/17 19:00 07:00 Intake Total 1615 ml Output Total 796 ml Balance 819 ml Intake Oral 360 ml IV Total 1255 ml Output Urine Total 600 ml Drainage Total 176 ml Estimated Blood Loss 20 ml # Voids 5 Objective gen - NAD heent - NC/AT CVS - rrr/ nl S1,S2 Lungs - CTA b/l. no rales Abd - NT/ND Ext - No c/c/e Skin - buttocks - wound vac; 3 drains on R and 2 on Left Assessment/Plan Assessment/Plan ASSESSMENT: 1. 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 2. gastritis 3. murmur PLAN: 1. Medsurg 2. senior management consultant pump for pain control 3. monitor H/H 4. TTE done. normal. 5. Plastic surgery following 6. Unasyn 3gm IV Q 6hrs 7. PPI 8. IV fluids 9. start miralax for constipation d/c planning on Mon with percocet (30); f/u with Dr. christianson in 1 week; will go home w/ drains; cipro BID x 2 weeks on dc EROS ARZATE M.D. Sep 11, 2017 19:30
[2017-09-11] MEDS: Miralax 17gm pkt ORAL SCH (21:07)
[2017-09-12] VITALS (7 sets, daily range): BP systolic 89–106; BP diastolic 51–63
[2017-09-12] MEDS: LR 1000ml 1,000 ML IV SCH ×2 (01:32→09:30)
[2017-09-12 05:11] LABS: BASOPHILS % (AUTO) 1.6 % (0.0-2.0); EOSINOPHILS % (AUTO) 0.5 % (0.0-3.0); LYMPHOCYTES % (AUTO) 35.6 % (20.0-45.0); MEAN CORPUSCULAR HEMOGLOBIN 26.5 PG (27.0-31.0); MEAN CORPUSCULAR HGB CONC 32.1 G/DL (32.0-36.0); MEAN CORPUSCULAR VOLUME 83 FL (80-99); MEAN PLATELET VOLUME 6.5 FL (6.5-10.1); MONOCYTES % (AUTO) 8.4 % (1.0-10.0); NEUTROPHILS % (AUTO) 53.8 % (45.0-75.0); PLATELET COUNT 322 K/UL (150-450); RED BLOOD COUNT 3.15 M/UL (4.20-5.40); RED CELL DISTRIBUTION WIDTH 20.9 % (11.6-14.8); WHITE BLOOD COUNT 8.1 K/UL (4.8-10.8)
[2017-09-12 05:13] LABS: ANION GAP 6 mmol/L (5-15); CALCIUM 8.6 MG/DL (8.5-10.1); CARBON DIOXIDE 28 MMOL/L (21-32); CHLORIDE 104 MMOL/L (98-107); CREATININE 0.6 MG/DL (0.55-1.30); GLOMERULAR FILTRATION RATE > 60 mL/min (>60); POTASSIUM 4.1 MMOL/L (3.5-5.1); SODIUM 138 MMOL/L (136-145)
[2017-09-12] MEDS: Heparin 5000 units/ml inj SUBQ SCH ×3 (06:00→22:09)
[2017-09-12] MEDS: Ampicillin/Sulbactam Sod 3 GM in NS 55 ML IVPB SCH ×3 (06:00→22:01)
[2017-09-12] MEDS: PCA shift volume MISC SCH ×2 (07:28→19:00)
[2017-09-12] MEDS: Pantoprazole Inj IVP SCH (08:25)
[2017-09-12] MEDS: Docusate 100mg cap ORAL SCH ×3 (08:25→18:05)
--- NOTE | 2017-09-12 10:51 | 48 Hour Post Anesthesia Eval ---
Post Anesthesia Evaluation Procedure: Closure Bilateral Buttocks/Back with Debridement, Closure, Bilateral Legs Date of Evaluation: Sep 12, 2017 Time of Evaluation: 13:05 Blood Pressure Systolic: 89 0: 58 Pulse Rate: 64 Respiratory Rate: 20 Temperature (Fahrenheit): 97.9 O2 Sat by Pulse Oximetry: 100 Airway: patent Nausea: No Vomiting: No Pain Intensity: 3 Hydration Status: adequate Cardiopulmonary Status: Stable Mental Status/LOC: patient returned to baseline Follow-up Care/Observations: As per surgery Post-Anesthesia Complications: No anesthetic complication Follow-up care needed: N/A SYLVIE SANCHEZ M.D. Sep 12, 2017 10:51
--- NOTE | 2017-09-12 16:48 | Internal Med Progress Note ---
Subjective Physician Name Eros Aguilar Attending Physician Eros Aguilar M.D. Current Medications Medications (Trade) Dose Ordered Sig/Laura Route PRN Reason Start Time Stop Time Status Last Admin Dose Admin Acetaminophen (Tylenol) 650 mg Q4H PRN ORAL Mild Pain (Pain Scale 1-3) 09/07/17 23:15 10/07/17 23:14 Ampicillin Sodium/ Sulbactam Sodium 3 gm/Sodium Chloride 55 ml @ 110 mls/hr Q8HR IVPB 09/08/17 22:00 09/15/17 21:59 09/12/17 14:17 Dextrose (Dextrose 50%) STAT PRN IV Hypoglycemia 09/07/17 23:15 10/07/17 23:14 Diphenhydramine HCl (Benadryl) 25 mg Q6H PRN IVP Itching/Pruritis 09/11/17 08:30 09/13/17 08:29 Docusate Sodium (Colace) 100 mg THREE TIMES A DAY ORAL 09/09/17 13:00 10/09/17 12:59 09/12/17 12:40 Ferrous Sulfate (Feosol) 325 mg THREE TIMES A DAY ORAL 09/09/17 13:00 10/09/17 12:59 09/12/17 12:40 Heparin Sodium (Porcine) (Heparin 5000 units/ml) 5,000 units EVERY 8 HOURS SUBQ 09/08/17 22:00 10/08/17 21:59 09/12/17 14:21 Hydromorphone HCl 30 ml @ 0 mls/hr Q24H PRN IV For Pain 09/11/17 08:30 09/13/17 08:29 09/11/17 12:03 Lorazepam (Ativan) 1 mg Q4H PRN ORAL Muscle Spasm 09/11/17 08:30 09/13/17 08:29 Lorazepam (Ativan) 1 mg QHS PRN ORAL Insomnia 09/09/17 11:30 09/16/17 11:29 Miscellaneous Medication (SR TECHNICAL SALES CONSULTANT Rate Change) 1 ea DAILY PRN MISC rate change 09/11/17 08:30 09/13/17 08:29 Miscellaneous Medication (SR TECHNICAL SALES CONSULTANT shift volume) 1 ea Q12HR@0700,1900 MISC 09/11/17 19:00 09/13/17 18:59 09/12/17 07:28 Naloxone HCl (Narcan) 0.1 mg Q1M PRN IVP RR<10/min OR SBP<90 mmHg 09/11/17 08:30 09/13/17 08:29 Ondansetron HCl (Zofran) 4 mg Q6H PRN IVP Nausea & Vomiting 09/11/17 08:30 09/13/17 08:29 Pantoprazole (Protonix) 40 mg DAILY IVP 09/09/17 09:00 10/09/17 08:59 09/12/17 08:25 Polyethylene Glycol (Miralax) 17 gm BEDTIME ORAL 09/11/17 21:00 10/11/17 20:59 09/11/17 21:07 Zolpidem Tartrate (Ambien) 5 mg HSPRN PRN ORAL Insomnia 09/09/17 17:45 09/16/17 17:44 09/11/17 21:14 Allergies: Coded Allergies: No Known Allergies (Unverified , 09/07/17) Subjective no BM yet dec appetite no SOB 12 pt ROS neg except above positives Objective Last Vital Signs Date Time Temp Pulse Resp B/P (MAP) Pulse Ox O2 Delivery O2 Flow Rate FiO2 09/12/17 16:00 20 09/12/17 16:00 98.5 69 106/60 100 09/12/17 11:51 Nasal Cannula 3.0 Laboratory Tests Test 09/12/17 04:30 White Blood Count 8.1 K/UL (4.8-10.8) Red Blood Count 3.15 M/UL (4.20-5.40) L Hemoglobin 8.4 G/DL (12.0-16.0) L Hematocrit 26.0 % (37.0-47.0) L Mean Corpuscular Volume 83 FL (80-99) Mean Corpuscular Hemoglobin 26.5 PG (27.0-31.0) L Mean Corpuscular Hemoglobin Concent 32.1 G/DL (32.0-36.0) Red Cell Distribution Width 20.9 % (11.6-14.8) H Platelet Count 322 K/UL (150-450) Mean Platelet Volume 6.5 FL (6.5-10.1) Neutrophils (%) (Auto) 53.8 % (45.0-75.0) Lymphocytes (%) (Auto) 35.6 % (20.0-45.0) Monocytes (%) (Auto) 8.4 % (1.0-10.0) Eosinophils (%) (Auto) 0.5 % (0.0-3.0) Basophils (%) (Auto) 1.6 % (0.0-2.0) Sodium Level 138 MMOL/L (136-145) Potassium Level 4.1 MMOL/L (3.5-5.1) Chloride Level 104 MMOL/L (98-107) Carbon Dioxide Level 28 MMOL/L (21-32) Anion Gap 6 mmol/L (5-15) Blood Urea Nitrogen 5 mg/dL (7-18) L Creatinine 0.6 MG/DL (0.55-1.30) Estimat Glomerular Filtration Rate > 60 mL/min (>60) Glucose Level 101 MG/DL (74-106) Calcium Level 8.6 MG/DL (8.5-10.1) Intake and Output 09/12/17 09/13/17 19:00 07:00 Intake Total 1927.5 ml Output Total 40 ml Balance 1887.5 ml Intake Oral 930 ml IV Total 997.5 ml Drainage Total 40 ml # Voids 2 Objective gen - NAD heent - NC/AT CVS - rrr/ nl S1,S2 Lungs - CTA b/l. no rales Abd - NT/ND Ext - No c/c/e Skin - buttocks - wound vac; 3 drains on R and 2 on Left Assessment/Plan Assessment/Plan ASSESSMENT: 1. 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 2. gastritis 3. murmur PLAN: 1. Medsurg 2. senior care provider pump for pain control 3. monitor H/H 4. TTE done. normal. 5. Plastic surgery following 6. Unasyn 3gm IV Q 6hrs 7. PPI 8. IV fluids 9. start miralax for constipation ; start senna and suppository prn d/c planning on Mon with percocet (30); f/u with Dr. christianson in 1 week; will go home w/ drains; cipro BID x 2 weeks on EROS Burroughs M.D. 5, 2017 16:48
[2017-09-12] MEDS: Sennosides 8.6mg ORAL SCH (16:58)
[2017-09-12] MEDS: PCA HYDROmorphone 1mg/ml 30 ML IV PRN (18:08)
[2017-09-12] MEDS: Miralax 17gm pkt ORAL SCH (21:52)
[2017-09-13 00:17] VITALS: BP 105/61
[2017-09-13 04:00] VITALS: BP 101/66
[2017-09-13] MEDS: Ampicillin/Sulbactam Sod 3 GM in NS 55 ML IVPB SCH ×2 (05:37→14:18)
[2017-09-13] MEDS: Heparin 5000 units/ml inj SUBQ SCH ×2 (05:50→14:24)
[2017-09-13 08:03] LABS: MEAN CORPUSCULAR HEMOGLOBIN 24.9 PG (27.0-31.0); MEAN CORPUSCULAR HGB CONC 29.6 G/DL (32.0-36.0); MEAN CORPUSCULAR VOLUME 84 FL (80-99); MEAN PLATELET VOLUME 5.7 FL (6.5-10.1); PLATELET COUNT 301 K/UL (150-450); RED BLOOD COUNT 2.97 M/UL (4.20-5.40); RED CELL DISTRIBUTION WIDTH 21.1 % (11.6-14.8); WHITE BLOOD COUNT 4.7 K/UL (4.8-10.8)
[2017-09-13 08:22] LABS: ANION GAP 7 mmol/L (5-15); CALCIUM 8.6 MG/DL (8.5-10.1); CARBON DIOXIDE 29 MMOL/L (21-32); CHLORIDE 104 MMOL/L (98-107); CREATININE 0.6 MG/DL (0.55-1.30); GLOMERULAR FILTRATION RATE > 60 mL/min (>60); POTASSIUM 3.8 MMOL/L (3.5-5.1); SODIUM 140 MMOL/L (136-145)
[2017-09-13 08:27] LABS: ANISOCYTOSIS 2+; BAND NEUTROPHILS % (MANUAL) 0 % (0-8); BASOPHILS % (MANUAL) 0 % (0-2); EOSINOPHILS % (MANUAL) 1 % (0-3); HYPOCHROMASIA 1+; LYMPHOCYTES % (MANUAL) 42 % (20-45); NEUTROPHILS % (MANUAL) 49 % (45-75); PLATELET ESTIMATE ADEQUATE; PLATELET MORPHOLOGY NORMAL; TOTAL CELLS COUNTED 100
[2017-09-13 08:38] VITALS: BP 88/55
[2017-09-13] MEDS: Docusate 100mg cap ORAL SCH ×3 (08:46→17:28)
[2017-09-13] MEDS: Sennosides 8.6mg ORAL SCH (08:46)
[2017-09-13] MEDS: Pantoprazole Inj IVP SCH (08:46)
[2017-09-13] MEDS ORDERED: NS 250 ML IVPB ONE (09:15)
[2017-09-13 09:20] LABS: IMMUNOGLOBULIN A 304 mg/dL (87-352); IMMUNOGLOBULIN G 1224 mg/dL (700-1600); IMMUNOGLOBULIN M 70 mg/dL (26-217)
[2017-09-13 10:24] VITALS: BP 101/62
[2017-09-13 12:00] VITALS: BP 100/64
[2017-09-13] MEDS: oxyCODONE HCL/Acetaminophen 5/325mg ORAL PRN ×2 (13:20→19:33)
[2017-09-13 16:10] VITALS: BP 98/57
--- NOTE | 2017-09-13 16:41 | Discharge Summary ---
Discharge Summary Hospital Course Date of Admission Sep 07, 2017 at 23:03 Date of Discharge Admitting Diagnosis Intractable back pain HPI Sabina Marley is a 47 year old female who was admitted on Sep 07, 2017 at 23: 03 for Intractable Back Pain d/c summary dictated # [id number] Discharge Condition Upon Discharge: stable Discharge Disposition Patient was discharged to Home (01) Discharge Diagnoses: CHERRI ARZATE M.D. Sep 13, 2017 16:41
[2017-09-13] MEDS ORDERED: PERCOCET 5-3251 EACH ORAL (17:09)
[2017-09-13] MEDS ORDERED: CIPRO500 MG PO (17:10)
[2017-09-13] MEDS ORDERED: ATIVAN0.5 MG ORAL (17:10)
[2017-09-13] MEDS ORDERED: SENOKOT8.6 MG PO (17:11)
[2017-09-13] MEDS ORDERED: FERROUS SULFAT325 MG ORAL (17:11)
[2017-09-13] MEDS ORDERED: D5NS 1000ml IV ONE (19:54)
[2017-09-13] MEDS ORDERED: LR 1000ml ONE (19:54)
[2017-09-13] MEDS ORDERED: NS 275ml ONE (19:54)
[2017-09-13] MEDS ORDERED: Tubing IV Secondary IV ONE (19:54)
--- NOTE | 2017-09-13 20:30 | Operative Note - Dictated ---
DATE OF OPERATION: 09/11/2017 SURGEON: Ernesto Alfredo M.D. LIME PLANT OPERATOR SURGEON: Mary Griffin M.D. ANESTHESIOLOGIST: Hai Taylor M.D. ANESTHESIA: General endotracheal tube anesthesia. PREOPERATIVE DIAGNOSES: 1. Open bilateral buttock wounds, status post radical debridement and resection of necrotic soft tissue. 2. Bilateral buttock, hip, and back soft tissue necrosis secondary to foreign bodies. 3. Cellulitis of bilateral buttock. 4. Foreign bodies of bilateral thigh. POSTOPERATIVE DIAGNOSES: 1. Open bilateral buttock wounds, status post radical debridement and resection of necrotic soft tissue. 2. Bilateral buttock, hip, and back soft tissue necrosis secondary to foreign bodies. 3. Cellulitis of bilateral buttock. 4. Foreign bodies of bilateral thigh. PROCEDURE PERFORMED: 1. Staged removal of foreign material from bilateral buttock and hips. 2. Radical resection of 108 square centimeters of left hip necrotic soft tissue mass. 3. Radical resection of 96 square centimeters of right hip necrotic soft tissue mass. 4. Lumbar spine fasciocutaneous advancement flap. 5. Right gluteal fasciocutaneous advancement flap. 6. Left gluteal fasciocutaneous advancement flap. 7. Extensive debridement of bilateral gluteus claudia necrotic muscle. 8. Complex closure of 30-cm open back wound. 9. Pulse jet lavage irrigation of bilateral buttock. 10. Prevena incisional VAC placement. 11. Removal of 32 square centimeters of left leg foreign bodies. 12. Removal of 32 square centimeters of right leg/thigh foreign bodies. 13. Total of 16-cm bilateral thigh complex closure. INDICATION FOR PROCEDURE: This is a 47-year-old female who was previously operated on three days ago. The patient reports resolution of preop symptoms, both local and systemic. The patient has been treated with wound VAC therapy in the floor as well as IV antibiotics. Today, the plan was to take the patient back for a planned second operation for further debridement of bilateral buttock and hips and fasciocutaneous advancement flap closure over drains of her buttock and back wound. The patient also has foreign materials that have migrated to bilateral lateral thigh just above the knees. There was approximately 8 x 4 cm on each lateral aspect of the inferior thigh that was necrotic, hard and tender, and causing pain to the patient. I explained to the patient through separate incisions, we would remove as much of the foreign material as possible and close this. Risks and benefits of the operation were fully discussed with the patient in the previous operation, and reiterated in the holding area today. The patient agreed to proceed and signed informed consent. All questions were answered. DESCRIPTION OF PROCEDURE: The patient was taken to the operating room in the supine position and placed under general endotracheal tube anesthesia. Perioperative antibiotics were given. SCDs were placed on bilateral lower extremity prior to the induction of general anesthesia. She was then placed in prone position. After appropriate positioning and padding of the arms and the rest of the body, I removed the wound VAC. The area was prepped and draped in the usual clean and sterile manner. A blue towel and [place] dressing was used to block any bowel flow. We started the operation by exploring for any bleeding and there was nothing significant. We then debrided some more skin with a #10 scalpel. We used [place] clamps and marked the proposed skin excision. With a #10 scalpel, we cut out the skin. We then further elevated bilateral inferiorly based left and right gluteal fasciocutaneous flaps another 5 cm or so with electrocautery while maintaining axial blood flow. With the use of a lighted retractor in a plane just deep to Kamila fascia and then in a plane just above the deep muscle fascia of the gluteus claudia muscle bilaterally, we incised the fascia of the muscles for the advancement flap. With a combination of sharp dissection and electrocautery, we radically excised a significant amount of residual soft tissue necrosis from bilateral hip. There was 108 square centimeters of left hip necrotic soft tissue and 96 square centimeters of right hip necrotic soft tissue that was removed with a combination of electrocautery and sharp dissection with scissors and scalpel. After doing this, the gluteus claudia muscles on both sides, more on the right than the left, were involved and necrotic and these were debrided with electrocautery and sharp dissection. We obtained hemostasis with electrocautery as well as #0 Vicryl sutures. The skin flaps were thin maintained appropriate blood supply while removing some of the necrotic soft tissue, however, a significant portion of both buttock flaps were still hardened in certain areas to which the patient was made aware of preoperatively that this would exist after the operation. After appropriately thinning the flaps and finishing the radical resection of the necrotic soft tissue from bilateral hip, we then obtained hemostasis. We then pulse jet lavaged 2 liters of antibiotic irrigation. We then tailor-tacked the skin and then used a marking pen to myra proposed skin closure. Then with #0 Vicryl sutures in a progressive tension suturing advancement flap technique, we did a right inferiorly based gluteal fasciocutaneous flap, a left inferiorly based gluteal fasciocutaneous flap, and a superiorly based lumbar fasciocutaneous flap advancement closure after the deep fascia and these muscles were cut and the flaps were advanced. Prior to closing, we placed five drains, two #19 Tajik Blakes and three 10-mm JPs which we took out through separate anterolateral stab incisions. They were secured in place with 2-0 silk sutures. We were then left with a 37-cm long open back wound. We closed this in a complex manner in the following manner. We used #0 Vicryl sutures to line up to approximate Kamila fascia in an interrupted fashion, #0 Vicryl sutures and 2-0 Vicryl sutures to line up to approximate the deep dermis in interrupted fashion, and we used running 3-0 Monocryl for subcuticular layer. Then there was good capillary refill to the flaps with minimal tension and nice contour was achieved. We then placed the Prevena incisional VAC and set it to the hospital VAC at 125 mmHg and secured the drains in place. We then addressed the bilateral thigh, inferior thigh, lateral leg foreign material. In the midportion of the necrotic tissue, a curvilinear incision was made with a #15 scalpel. With electrocautery, we dissected down to the necrotic soft tissue. We dissected around it sharply and with electrocautery, and then we performed removal of foreign material from the left and right thighs, 32 square centimeters on each side. This was sent to the laboratory as separate specimens. We stayed above the deep muscle fascia and preserved any neurovascular bundles that we could see. After ensuring hemostasis, we closed these wounds, it was 9 cm on the left leg and 7 cm on the right leg in a complex manner after undermining to take the tension off the wound and debriding the skin edges. We used #0 and 2-0 Vicryl sutures to line up to approximate Kamila fascia and the deep dermis in interrupted fashion and running 3-0 Monocryl sutures. Mastisol, Steri-Strips, Telfa, were placed. We then flipped the patient over, extubated her, and transferred to recovery room in stable condition. FINDINGS: As above. SPECIMENS: Four: 1. Left hip necrotic soft tissue. 2. Right hip necrotic soft tissue. 3. Right thigh foreign bodies and necrotic soft tissue. 4. Left thigh necrotic soft tissue/foreign bodies. ESTIMATED BLOOD LOSS: About 150 mL. COMPLICATIONS: None. DRAINS: Five, 19-Tajik Jermaine x2 and 10-mm LIBERTY x3. CONDITION: Stable. Ernesto Alfredo M.D. DR: NACHO JOB#: [id number] CC:
--- NOTE | 2017-09-14 07:00 | Discharge Summary ---
DATE OF ADMISSION: 09/07/2017 DATE OF DISCHARGE: 09/13/2017 PROCEDURES DONE HERE: Staged debridement of foreign material from bilateral buttocks and back and leg necrotic soft tissue debridement and wound VAC placement. BRIEF HOSPITAL COURSE AND SUMMARY: This is a pleasant 47-year-old female with history of anemia, silicon injections of the gluteals bilaterally five years ago, who presents to emergency room for lower back and buttocks pain, especially worse at night. The patient was started on antibiotics for cellulitis. She underwent debridement of bilateral buttocks and back and leg necrotic soft tissue as well as a wound VAC placed. She had three LIBERTY drains placed in the right and 2 LIBERTY drains placed in the left. Postoperative course was uneventful. Her pain is well controlled. DISCHARGE CONDITION: Stable. DISCHARGE INSTRUCTIONS: The patient to be discharged home with two weeks of Cipro 500 mg p.o. b.i.d. as well as iron sulfate and for anemia. She will have Percocet 5/325 mg one tab every six hours for pain. She will go home with an incisional VAC and follow up with Plastic Surgery in one week. DISCHARGE DIAGNOSES: 1. Gluteal cellulitis with tissue necrosis secondary to silicon, status post debridement and closure of bilateral buttock/back with debridement and incisional wound VAC placed. 2. Gastritis. 3. Anemia. 4. Murmur. Eros Aguilar MD DR: HOLLEY JOB#: [id number] CC:
== END 2017-09-13 19:55 | disposition home or self-care (01) | DRG 574 ==
LOC: EMR 20:51 → 3E 23:03 → EDBEDREQ 23:40 → 3E 09-08 02:59
PROC: 0JB90ZZ Excision of Buttock Subcutaneous Tissue and Fascia, Open Approach (ICD-10-PCS; principal; 2017-09-08 11:30)
PROC: 0KDN0ZZ Extraction of Right Hip Muscle, Open Approach (ICD-10-PCS; principal; 2017-09-08 11:30)
PROC: 0J870ZZ Division of Back Subcutaneous Tissue and Fascia, Open Approach (ICD-10-PCS; principal; 2017-09-08 11:30)
PROC: 0JB70ZZ Excision of Back Subcutaneous Tissue and Fascia, Open Approach (ICD-10-PCS; principal; 2017-09-08 11:30)
PROC: 0JD90ZZ Extraction of Buttock Subcutaneous Tissue and Fascia, Open Approach (ICD-10-PCS; principal; 2017-09-08 11:30)
PROC: 2W1PX6Z Compression of Left Upper Leg using Pressure Dressing (ICD-10-PCS; principal; 2017-09-08 11:30)
PROC: 2W1NX6Z Compression of Right Upper Leg using Pressure Dressing (ICD-10-PCS; principal; 2017-09-08 11:30)
PROC: 0J890ZZ Division of Buttock Subcutaneous Tissue and Fascia, Open Approach (ICD-10-PCS; principal; 2017-09-08 11:30)
PROC: 0JD70ZZ Extraction of Back Subcutaneous Tissue and Fascia, Open Approach (ICD-10-PCS; principal; 2017-09-08 11:30)
PROC: 0KDP0ZZ Extraction of Left Hip Muscle, Open Approach (ICD-10-PCS; principal; 2017-09-08 11:30)
PROC: 0KDQ0ZZ Extraction of Right Upper Leg Muscle, Open Approach (ICD-10-PCS; 2017-09-11)
PROC: 0JBM0ZZ Excision of Left Upper Leg Subcutaneous Tissue and Fascia, Open Approach (ICD-10-PCS; 2017-09-11)
PROC: 0JQM0ZZ Repair Left Upper Leg Subcutaneous Tissue and Fascia, Open Approach (ICD-10-PCS; 2017-09-11)
PROC: 0JQ70ZZ Repair Back Subcutaneous Tissue and Fascia, Open Approach (ICD-10-PCS; 2017-09-11)
PROC: 0JX90ZC Transfer Buttock Subcutaneous Tissue and Fascia with Skin, Subcutaneous Tissue and Fascia, Open Approach (ICD-10-PCS; 2017-09-11)
PROC: 0JBL0ZZ Excision of Right Upper Leg Subcutaneous Tissue and Fascia, Open Approach (ICD-10-PCS; 2017-09-11)
PROC: 0JCM0ZZ Extirpation of Matter from Left Upper Leg Subcutaneous Tissue and Fascia, Open Approach (ICD-10-PCS; 2017-09-11)
PROC: 2W1MX6Z Compression of Left Lower Extremity using Pressure Dressing (ICD-10-PCS; 2017-09-11)
PROC: 0KDR0ZZ Extraction of Left Upper Leg Muscle, Open Approach (ICD-10-PCS; 2017-09-11)
PROC: 0JC90ZZ Extirpation of Matter from Buttock Subcutaneous Tissue and Fascia, Open Approach (ICD-10-PCS; 2017-09-11)
PROC: 0JX70ZC Transfer Back Subcutaneous Tissue and Fascia with Skin, Subcutaneous Tissue and Fascia, Open Approach (ICD-10-PCS; 2017-09-11)
PROC: 0JQL0ZZ Repair Right Upper Leg Subcutaneous Tissue and Fascia, Open Approach (ICD-10-PCS; 2017-09-11)
PROC: 0JCL0ZZ Extirpation of Matter from Right Upper Leg Subcutaneous Tissue and Fascia, Open Approach (ICD-10-PCS; 2017-09-11)
DX: L03.317 Cellulitis of buttock (principal); I96 Gangrene, not elsewhere classified; K29.70 Gastritis, unspecified, without bleeding; R01.1 Cardiac murmur, unspecified; Z18.89 Other specified retained foreign body fragments
CPT/HCPCS: 36415; 72148; 72195; 80048; 81003; 82784; 84703; 85007; 85025; 85613; 85651; 85730; 86039; 86140; 86162; 86235; 86334; 86360; 86431; 86850; 86900; 86901; 86920; 93306; 94003; 94150; 99285; J2405; J2710